=== PATIENT | male | born 1985 | race Caucasian/White ===

== ENCOUNTER 2025-03-31 07:31 | Emergency (ER) | payer OTHER ==
[~2025-03-31] VITALS: Ht 190.5 cm; Wt 140.6 kg
[~2025-03-31 07:31] MED LIST: BIAXIN500 MG PO; CLARITIN10 MG PO; COMBIVENT1 ARO IH; HYDROCODONE BIT1 T11 PO; MEDROL DOSEPAK4 MG PO; Motrin,Rufen800 MG PO; Orphenadrine C100 MG PO
[2025-03-31] MEDS ORDERED: CLINDAMYCIN HC300 MG PO (07:56)
[2025-03-31] MEDS ORDERED: TYLE3UD PO (07:57)
== END 2025-03-31 08:00 | disposition home or self-care (01) ==
LOC: ED 07:31
DX: K02.9 Dental caries, unspecified (principal); Z90.89 Acquired absence of other organs

== ENCOUNTER 2025-05-20 08:20 | Emergency (ER) | payer OTHER ==
[~2025-05-20 08:20] MED LIST changes: +CLINDAMYCIN HC300 MG PO; +TYLE3UD PO
[2025-05-20] MEDS ORDERED: Ondansetron 4 MG 2 TAB ED PACK PO SCH (09:40)
[2025-05-20] MEDS ORDERED: Pantoprazole Sodium 20 MG TAB PO ONE (09:40)
[2025-05-20] MEDS ORDERED: SODIUM CHLORIDE 0.9% 1,000 ML IV ONE (09:40)
[2025-05-20 10:02] LABS: BASO # 0.1 10*3/uL (0.0-0.1); BASO % 0.4 % (0.0-1.0); EOS # 0.0 10*3/uL (0.0-0.4); EOS % 0.0 % (1.0-4.0); MEAN CELL VOLUME 88.3 fl (80.0-94.0); MEAN CORPUSCULAR HGB 30.2 pg (27.0-31.0); MEAN PLATELET VOLUME 9.2 fl (9.6-12.3); MONO # 1.0 10*3/uL (0.1-1.0); MONO % 6.8 % (3.0-9.0); NEUT # 10.6 10*3/uL (2.3-7.9); NEUT % 73.7 % (47.0-73.0); NUCLEATED RED BLOOD CELL 0.0 % (0.0-0.0); NUCLEATED RED BLOOD CELL 0.0 10*3/uL (0.0-0.0); PLATELET COUNT AUTOMATED 217 10*3/uL (130-400); RED CELL DISTRI WIDTH 13.1 % (0-14.5)
[2025-05-20] MEDS ORDERED: IOHEXOL 300 MG/ML 100 ML VIAL IV ONE (10:05)
[2025-05-20 10:12] LABS: BUN 11 mg/dl (9-23); SGPT/ALT 380 U/L (5-49)
[2025-05-20] MEDS ORDERED: IOHEXOL 300 MG/ML 100 ML VIAL ONE (10:29)
[2025-05-20] MEDS ORDERED: Ondansetron4 MG PO (14:19)
== END 2025-05-20 14:40 | disposition home or self-care (01) ==
LOC: ED 08:20
DX: K85.90 Acute pancreatitis without necrosis or infection, unspecified (principal); R11.2 Nausea with vomiting, unspecified; K80.20 Calculus of gallbladder without cholecystitis without obstruction; J45.909 Unspecified asthma, uncomplicated; Z90.89 Acquired absence of other organs